=== PATIENT | female | born 1990 | race African-American/Black ===

== ENCOUNTER 2016-11-15 19:10 | Inpatient (IN) | payer OTHER ==
[~2016-11-15] VITALS: Ht 167.6 cm; Wt 56.4 kg
[~2016-11-15 19:10] MED LIST: BIRTH CONTROL; IRON325 MG PO; MOTRIN800 MG PO; MULTIPLE VITAM1 EACH PO; NO HOME MEDS; PERCOCET 5/31 TABLET PO; PROTONIX40 MG PO
[2016-11-15] MEDS ORDERED: PERCOCET 7.51 TABLET PO (19:26)
[2016-11-15] MEDS ORDERED: TRAZODONE HCL50 MG PO (19:27)
[2016-11-15] MEDS ORDERED: IBUPROFEN800 MG PO (19:28)
[2016-11-15] MEDS ORDERED: MELOXICAM15 MG PO (19:28)
[2016-11-15] MEDS ORDERED: METHOCARBAMOL750 MG PO (19:29)
[2016-11-15 21:41] LABS: HEMATOCRIT 33.4 % (36.0-46.0); MCH 31.8 PG (29.0-34.0); MCHC 32.9 G/DL (30.0-36.0); MCV 96.5 FL (83-99); MEAN PLAT.VOLUME 8.7 uM^3 (9.5-12.4); PLATELET COUNT 595 K/uL (156-360); RBC DIS.WIDTH-CV 13.8 % (11.8-14.6); RBC DIS.WIDTH-SD 46.7 % (39-53); RED BLOOD COUNT 3.46 M/uL (3.80-5.20)
[2016-11-15 21:51] LABS: CHLORIDE 106 mEq/L (99-109); POTASSIUM 4.1 mEq/L (3.7-5.4); SODIUM 141 mEq/L (136-147)
[2016-11-15 21:53] LABS: GLUCOSE 78 mg/dL (70-99)
[2016-11-15 21:54] LABS: ANION GAP 10 MEQ/L (2-14)
[2016-11-15 21:56] LABS: SERUM ETHYL ALCOHOL < 10 mg/dL
[2016-11-15 21:57] LABS: GFR ESTIMATE (CALCULATED) > 59 mL/min/
[2016-11-15 21:58] LABS: UREA NITROGEN (BUN) 6 mg/dL (9-23)
[2016-11-15 22:00] LABS: SALICYLATE < 5.0 MG/DL (15-30)
[2016-11-15 22:31] LABS: ADD MEDTOX COMMENT Y; AMPHETAMINE NEGATIVE (500 ng/mL); BARBITURATES NEGATIVE (200 ng/mL); BENZODIAZEPINES PRESUMPTIVE POSITIVE (150 ng/mL); COCAINE PRESUMPTIVE POSITIVE (150 ng/mL); INTERNAL CONTROLS VALID? YES; METHADONE NEGATIVE (200 ng/mL); METHAMPHETAMINE NEGATIVE (500 ng/mL); OPIATES (MORPHINE) NEGATIVE (100 ng/mL); OXYCODONE PRESUMPTIVE POSITIVE (100 ng/mL); PHENCYCLIDINE NEGATIVE (25 ng/mL); PROPOXYPHENE NEGATIVE (300 ng/mL); THC CANNABINOIDS NEGATIVE (50 ng/mL); TRICYCLIC ANTIDEPRESSANTS NEGATIVE (300 ng/mL)
[2016-11-15] MEDS ORDERED: AMBIEN10 MG PO (22:39)
[2016-11-15 23:09] LABS: BENZODIAZEPINES, URINE SCREEN POSITIVE (200 ng/mL)
[2016-11-16 01:15] VITALS: BP 128/87
[2016-11-16 07:44] VITALS: BP 126/65
[2016-11-16 15:34] VITALS: BP 122/81
[2016-11-17 09:12] VITALS: BP 144/77
[2016-11-17] MEDS ORDERED: DULOXETINE HCL20 MG PO (10:00)
== END 2016-11-17 11:35 | disposition home or self-care (01) | DRG 881 ==
LOC: EME 19:10 → EDOF 22:12 → 1WEST 22:12
PROVIDERS: Emergency Medicine
DX: F32.9 Major depressive disorder, single episode, unspecified (principal); R45.851 Suicidal ideations; M41.9 Scoliosis, unspecified; F17.210 Nicotine dependence, cigarettes, uncomplicated
CPT/HCPCS: 80048; 84999; 85027; 90837; 97150 GO; 97165 GO; 99281; 99285; G0480; Q0177

== ENCOUNTER → 2017-04-17 | Emergency (ER) | payer OTHER, BC ==
[~2017-04-17] VITALS: Ht 167.6 cm; Wt 61.3 kg
[~2017-04-17] MED LIST changes: +AMBIEN10 MG PO; +DULOXETINE HCL20 MG PO; +IBUPROFEN800 MG PO; +MELOXICAM15 MG PO; +METHOCARBAMOL750 MG PO; +PERCOCET 7.51 TABLET PO; +TRAZODONE HCL50 MG PO
[2017-04-17 19:23] VITALS: BP 121/84
== END | disposition left against medical advice (07) ==
LOC: EME 18:51
DX: G47.00 Insomnia, unspecified (principal); Z53.21 Procedure and treatment not carried out due to patient leaving prior to being seen by health care provider

== ENCOUNTER 2017-12-07 02:46 | Emergency (ER) | payer OTHER ==
[~2017-12-07] VITALS: Ht 167.6 cm; Wt 60.0 kg
[2017-12-07] MEDS ORDERED: ATIVAN1 MG PO (03:20)
[2017-12-07 04:22] VITALS: BP 112/88
== END 2017-12-07 04:22 | disposition home or self-care (01) ==
LOC: EME 02:46
DX: F32.9 Major depressive disorder, single episode, unspecified (principal); F41.9 Anxiety disorder, unspecified; F43.9 Reaction to severe stress, unspecified; G47.00 Insomnia, unspecified; Z91.5 Personal history of self-harm; F17.200 Nicotine dependence, unspecified, uncomplicated; M41.9 Scoliosis, unspecified; Z88.5 Allergy status to narcotic agent; Z88.6 Allergy status to analgesic agent
CPT/HCPCS: 99281; 99284

== ENCOUNTER 2017-12-14 08:35 | Day surgery (SDC) | payer OTHER ==
[~2017-12-14] VITALS: Ht 167.6 cm; Wt 64.4 kg
[~2017-12-14 08:35] MED LIST changes: +ATIVAN1 MG PO
== END 2017-12-14 10:08 | disposition home or self-care (01) ==
LOC: PAIN 08:35 → SDC 09:30 → PAIN 09:30
DX: M47.816 Spondylosis without myelopathy or radiculopathy, lumbar region (principal); M43.17 Spondylolisthesis, lumbosacral region; M54.16 Radiculopathy, lumbar region; M51.36 Other intervertebral disc degeneration, lumbar region; M48.061 Spinal stenosis, lumbar region without neurogenic claudication; M96.1 Postlaminectomy syndrome, not elsewhere classified; Z79.891 Long term (current) use of opiate analgesic; F17.200 Nicotine dependence, unspecified, uncomplicated
CPT/HCPCS: J1030; J2250; J3010; S0020

== ENCOUNTER 2018-02-01 06:56 | Day surgery (SDC) | payer OTHER ==
[~2018-02-01] VITALS: Ht 170.2 cm; Wt 63.0 kg
[~2018-02-01 06:56] MED LIST changes: +EXCEDRIN EXTRA1 EACH PO
== END 2018-02-01 08:45 | disposition home or self-care (01) ==
LOC: PAIN 06:56 → SDC 07:30 → PAIN 08:45
DX: M47.816 Spondylosis without myelopathy or radiculopathy, lumbar region (principal); M43.17 Spondylolisthesis, lumbosacral region; M54.16 Radiculopathy, lumbar region; M51.36 Other intervertebral disc degeneration, lumbar region; M96.1 Postlaminectomy syndrome, not elsewhere classified; M25.559 Pain in unspecified hip; M54.5 Low back pain; F17.200 Nicotine dependence, unspecified, uncomplicated
CPT/HCPCS: J1030; J2250; S0020

== ENCOUNTER 2018-03-19 02:13 | Emergency (ER) | payer OTHER ==
[~2018-03-19] VITALS: Ht 167.6 cm; Wt 63.8 kg
[2018-03-19 02:19] VITALS: BP 136/95
[2018-03-19] MEDS ORDERED: ATIVAN1 MG PO (06:37)
[2018-03-19] MEDS ORDERED: NORCO 5/3251 TABLET PO (06:39)
== END 2018-03-19 03:30 | disposition left against medical advice (07) ==
LOC: EME 02:13
DX: M54.9 Dorsalgia, unspecified (principal); Z53.21 Procedure and treatment not carried out due to patient leaving prior to being seen by health care provider

== ENCOUNTER 2018-03-19 05:54 | Emergency (ER) | payer OTHER ==
[~2018-03-19] VITALS: Ht 167.6 cm; Wt 63.6 kg
[2018-03-19] MEDS ORDERED: ATIVAN1 MG PO (06:37)
[2018-03-19] MEDS ORDERED: NORCO 5/3251 TABLET PO (06:39)
[2018-03-19 06:49] VITALS: BP 123/84
== END 2018-03-19 06:50 | disposition home or self-care (01) ==
LOC: EME 05:54
DX: M54.9 Dorsalgia, unspecified (principal); M41.9 Scoliosis, unspecified; M62.838 Other muscle spasm; F41.9 Anxiety disorder, unspecified; F32.9 Major depressive disorder, single episode, unspecified; F17.200 Nicotine dependence, unspecified, uncomplicated; Z88.6 Allergy status to analgesic agent; Z88.5 Allergy status to narcotic agent; Z91.018 Allergy to other foods
CPT/HCPCS: 99281; 99284

== ENCOUNTER 2018-04-16 20:58 | Emergency (ER) | payer OTHER ==
[~2018-04-16] VITALS: Ht 170.2 cm; Wt 62.9 kg
[~2018-04-16 20:58] MED LIST changes: +NORCO 5/3251 TABLET PO
[2018-04-16 22:19] LABS: APPEARANCE CLEAR ((CLEAR)); BILIRUBIN NEGATIVE; BLOOD NEGATIVE; COLOR YELLOW ((YELLOW)); GLUCOSE (STRIP) NEGATIVE; KETONES 5; LEUKOCYTES TRACE; NITRITE NEGATIVE; PROTEIN (STRIP) 100
[2018-04-16 22:36] LABS: BACTERIA NONE SEEN /HPF; EPITHELIAL CELLS 1+ /HPF; MUCUS 1+ /LPF; RED BLOOD CELLS 0-5 /HPF (0-5); UCUL ADDED? NO; WHITE BLOOD CELLS 0-5 /HPF (0-5)
[2018-04-16] MEDS ORDERED: PERCOCET 5/31 TABLET PO (23:24)
[2018-04-16] MEDS ORDERED: FLEXERIL10 MG PO (23:25)
[2018-04-16 23:37] VITALS: BP 121/77
== END 2018-04-16 23:39 | disposition home or self-care (01) ==
LOC: EME 20:58 → RME 20:58
PROVIDERS: Physician Assistant
DX: G89.29 Other chronic pain (principal); M54.5 Low back pain; M54.16 Radiculopathy, lumbar region; M41.9 Scoliosis, unspecified; Z88.6 Allergy status to analgesic agent; Z88.5 Allergy status to narcotic agent; Z91.02 Food additives allergy status
CPT/HCPCS: 81003; 81025; 99281; 99283; J1885

== ENCOUNTER 2018-04-29 04:51 | Emergency (ER) | payer OTHER ==
[~2018-04-29] VITALS: Ht 167.6 cm; Wt 65.0 kg
[~2018-04-29 04:51] MED LIST changes: +FLEXERIL10 MG PO
[2018-04-29] MEDS ORDERED: NAPROSYN500 MG PO (06:32)
[2018-04-29] MEDS ORDERED: FLEXERIL10 MG PO (06:32)
[2018-04-29] MEDS ORDERED: SKELAXIN800 MG PO (06:40)
[2018-04-29 07:01] VITALS: BP 122/90
== END 2018-04-29 07:09 | disposition home or self-care (01) ==
LOC: EME 04:51
DX: M54.9 Dorsalgia, unspecified (principal); Z98.1 Arthrodesis status; F17.200 Nicotine dependence, unspecified, uncomplicated; Z88.6 Allergy status to analgesic agent; Z88.5 Allergy status to narcotic agent
CPT/HCPCS: 99281; 99284; J1885

== ENCOUNTER 2018-06-11 01:40 | Emergency (ER) | payer OTHER ==
[~2018-06-11] VITALS: Ht 167.6 cm; Wt 60.8 kg
[~2018-06-11 01:40] MED LIST changes: +NAPROSYN500 MG PO; +SKELAXIN800 MG PO
[2018-06-11] MEDS ORDERED: TESSALON PERLE100 MG PO (03:04)
[2018-06-11] MEDS ORDERED: ZITHROMAX250 MG PO (03:04)
[2018-06-11] MEDS ORDERED: PREDNISONE20 MG PO (03:04)
[2018-06-11] MEDS ORDERED: VENTOLIN HFA18 GM IH (03:04)
[2018-06-11] MEDS ORDERED: VISTARIL50 MG PO (03:09)
[2018-06-11 03:34] VITALS: BP 107/72
== END 2018-06-11 03:35 | disposition home or self-care (01) ==
LOC: EME 01:40
DX: J18.0 Bronchopneumonia, unspecified organism (principal); J98.8 Other specified respiratory disorders; F17.200 Nicotine dependence, unspecified, uncomplicated; F32.9 Major depressive disorder, single episode, unspecified; F41.9 Anxiety disorder, unspecified; Z98.1 Arthrodesis status; Z88.6 Allergy status to analgesic agent; Z88.5 Allergy status to narcotic agent
CPT/HCPCS: 71046; 94640; 99281; 99284; J7512